=== PATIENT | male | born 1940 ===

== ENCOUNTER → 2018-09-14 21:23 | Outpatient (REF) | payer OTHER, SELFPAY ==
[2018-09-14 22:26] LABS: Add Manual Diff / Slide Review NO; Basophils Percent Auto 0.7 % (0-2); Eosinophils Percent Auto 4.7 % (2-4); Hematocrit 43.3 % (41-53); Hemoglobin 14.9 g/dL (13.5-17.5); Lymphocytes Percent Auto 25.7 % (25-40); Mean Corpuscular HGB Conc 34.4 % (30-36); Mean Corpuscular Hemoglobin 34.4 PG (26-34); Mean Corpuscular Volume 100.1 fL (80-100); Monocytes Percent Auto 13.5 % (3-14); Neutrophils Absolute Auto 2800 /uL (3000-5900); Neutrophils Percent Auto 55.4 % (50-75); Platelet Count 162 X10^3/uL (150-400); Red Blood Cell Count 4.33 X10^6/uL (4.5-5.9); Red Cell Distribution Width 12.8 % (11.6-14.8); White Blood Cell Count 5.1 X10^3/uL (4.5-11.0)
[2018-09-16 14:30] LABS: PSA Total 0.89 ng/mL (< 4.01)
[2018-09-16 15:08] LABS: Estradiol 28 pg/mL (< 40)
[2018-09-17 13:46] LABS: Z- Score (Male) 0.3 SD (-2.0 - +2.0)
[2018-09-17 13:54] LABS: Dehydroepiandrosterone Sulfate 269 mcg/dL (5-253)
[2018-09-18 13:18] LABS: Testosterone Free 74.4 pg/mL (30.0-135.0); Testosterone Total 536 ng/dL (250-1100)
== END ==
LOC: LAB 21:23
PROVIDERS: Visit Provider Family Medicine
DX: E29.1 Testicular hypofunction (principal); M65.341 Trigger finger, right ring finger; N40.1 Benign prostatic hyperplasia with lower urinary tract symptoms
CPT/HCPCS: 82627; 82670; 84153; 84154; 84305; 84402; 84403; 85025

== ENCOUNTER → 2018-12-07 21:51 | Outpatient (REF) | payer OTHER, MEDICARE, SELFPAY ==
[2018-12-07 21:53] LABS: Bacteria Urine None Seen; RBC Urine None Seen (0-5/HPF); WBC Urine None Seen (0-5/HPF)
[2018-12-07 22:23] LABS: Add Manual Diff / Slide Review NO; Basophils Absolute Auto 0 /uL (0-100); Basophils Percent Auto 0.8 % (0-2); Eosinophils Absolute Auto 100 /uL (0-450); Hemoglobin 15.8 g/dL (13.5-17.5); Lymphocytes Absolute Auto 1300 /uL (1100-4500); Lymphocytes Percent Auto 30.4 % (25-40); Mean Corpuscular HGB Conc 33.6 % (30-36); Mean Corpuscular Hemoglobin 33.8 PG (26-34); Mean Corpuscular Volume 100.7 fL (80-100); Monocytes Absolute Auto 500 /uL (0-900); Monocytes Percent Auto 11.4 % (3-14); Neutrophils Absolute Auto 2400 /uL (1500-7000); Neutrophils Percent Auto 55.4 % (50-75); Platelet Count 165 X10^3/uL (150-400); Red Blood Cell Count 4.66 X10^6/uL (4.5-5.9); White Blood Cell Count 4.4 X10^3/uL (4.5-11.0)
[2018-12-07 22:38] LABS: Appearance Urine UA CLEAR; Bilirubin Urine UA NEGATIVE (NEGATIVE); Color Urine UA YELLOW; Glucose Urine UA NEGATIVE (Negative); Ketones Urine UA NEGATIVE (NEGATIVE); Leukocyte Esterase Urine UA NEGATIVE (NEGATIVE); Nitrite Urine UA NEGATIVE (Negative); Occult Blood Urine UA NEGATIVE (Negative); Protein Urine UA NEGATIVE (Negative); Urobilinogen Urine UA 0.2 E.U./dL (0.2); pH Urine UA 6.5 (4.5-8.0)
[2018-12-07 22:39] LABS: Alanine Aminotransferase 48 IU/L (21-72); Albumin 4.3 g/dL (3.5-5.0); Alkaline Phosphatase 75 U/L (38-126); Aspartate Aminotransferase 37 IU/L (17-59); Bilirubin Total 1.4 mg/dL (0.2-1.3); Blood Urea Nitrogen 20 mg/dL (9-20); Calcium 9.3 mg/dL (8.4-10.2); Carbon Dioxide 27 mmol/L (22-32); Chloride 101 mmol/L (98-107); Cholesterol 168 mg/dL (140-199); Estimated Glomerular Filt Rate > 60.0 mL/min (>60); Globulin 4.2 g/dL (1.7-4.1); Glucose 94 mg/dL (80-110); HDL Cholesterol 61 mg/dL (40-60); HEMOLYSIS < 15 (0-50); LDL Cholesterol Calculated 87 mg/dL (<100); Potassium 4.6 mmol/L (3.4-5.1); Sodium 137 mmol/L (137-145); Total Protein 8.5 g/dL (6.3-8.2); Triglycerides 100 mg/dL (35-150)
[2018-12-07 23:10] LABS: TSH w/ Reflex to FT4 1.61 uIU/mL (0.47-4.68)
[2018-12-07 23:12] LABS: Ferritin 42.4 ng/mL (17.9-464)
[2018-12-08 04:04] LABS: Culture Indicated Urine Cult Not Indicated; Urine Comments Microscopic Normal
[2018-12-10 14:10] LABS: Mumps Virus IgG Antibody < 9.00 AU/mL (< 9.00); Rubeola Measles IgG > 300.00 AU/mL (< 25.00)
== END ==
LOC: LAB 21:51
PROVIDERS: Visit Provider Family Medicine
DX: Z00.00 Encounter for general adult medical examination without abnormal findings (principal); Z13.89 Encounter for screening for other disorder; F51.01 Primary insomnia; M72.2 Plantar fascial fibromatosis; E29.1 Testicular hypofunction
CPT/HCPCS: 36415; 80053; 80061; 81001; 82728; 84443; 85025; 86735; 86762; 86765